=== PATIENT | female | born 1945 | race Caucasian/White ===

== ENCOUNTER → 2016-10-29 | Day surgery (SDC) | payer MEDICARE ==
[~2016-10-29] VITALS: Ht 165.1 cm; Wt 106.1 kg
[~2016-10-29] MED LIST: ACETAMINOPHEN 325 MG TAB PO PRN; ASPI1TAB PO; AcetaZOLAMIDE 500 MG ER CAP PO ONE; BSS with VANC/TOB/EPI for EYE CASES IR ONE; CEFUROXIME 1MG/0.1ML INTRACAMERAL INJ As Ordered ONE; CYCLOPENTOLATE 2% OPHTH SOLN 2ML BTL XX ONE; HEALON DUET (HEALON 10MG/ML 0.55ML & HEALON ENDOCOAT 30MG/ML 0.85ML) As Ordered ONE; KETOROLAC 0.5% OPHTH SOLN OS ONE; LEVO75TA4 PO; LIDOCAINE 1% SDV 5 ML VIAL As Ordered ONE; LIDOCAINE 4% INJ 5 ML AMP OU ONE; LISI20TA3 PO; LR 500 ML IV ONE; METO100T PO; MIDAZOLAM INJ 2 MG/2 ML VIAL (J2250) As Ordered ONE; OFLOXACIN 0.3 % (OCUFLOX) OPTH SOL 5ML XX ONE; PHENYLEPHRINE 2.5% OPHTH SOL 2ML XX ONE; POVIDONE-IODINE 5% OPHTH PREP SOL 30ML As Ordered ONE; PRAV40TA2 PO; PROPARACAINE 0.5% OPHTH SOL 15ML OS PRN; TOBRADEX OPHTH OINT 3.5 GM As Ordered ONE; TRIMETHOBENZAMIDE 300 MG CAP PO PRN; TROPICAMIDE 1% OPHTH SOLN 2ML XX ONE; mitoMYcin (FOR OPHTHALMIC USE) 0.3MG/1ML SYRINGE IN NaCl (J7999) As Ordered ONE
[2016-10-29 13:35] VITALS: BP 146/68
--- NOTE | 2016-11-04 20:20 | RO ---
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 PROCEDURE: Femtosecond laser with phacoemulsification and intraocular lens implantation of PCB00, power 20 diopters. SURGEON: Dr. Joanne Amador CASING MAN: None. ANESTHESIA: COMPLICATIONS: None. DESCRIPTION OF PROCEDURE: The patient was first brought to the laser suite after the eye was prepped and draped. Patient interface was applied and the suction was initiated. After adequate suction, OCT images were taken following which the laser was activated. Capsulorrhexis, lens fragmentation primary, secondary and tertiary corneal incisions were made per plan after which the suction was released and the patient was brought to the operating room. Eye was prepped and draped in a sterile fashion for ophthalmic surgery and a lid speculum was placed. The sideport and the temporal corneal incisions were opened and so were the arcuate incisions per plan. EndoCoat was injected into the anterior chamber. Capsulorrhexis removed, hydrodissection done, phacoemulsification done in a divide and conquer method within the capsular bag followed by aspiration of the cortex. Intraocular lens PCB00, 20 diopter was then placed in the capsular bag. Healon was then placed into the ciliary sulcus to visualize the ciliary processes on the video screen with the help of the EndoProbe and endocyclophotocoagulation was done 280 degrees at 0.25 milliwatts and good results were noted as shrinking of the ciliary processes. Following this, a #10-0 nylon suture was placed after excess viscoelastic was aspirated. Attention was then diverted to placing the Ex-PRESS shunt. A limbal-based conjunctival peritomy was done for 4 o'clock hour superiorly. Subconjunctival dissection was carried out after giving subconjunctival 2% lidocaine with 1:100,000 epinephrine. The dissection was carried out all the way to the blue line. Hemostasis was obtained as necessary. Mitomycin 0.3 mg per mL was then placed in the scleral bed followed by copious irrigation with balanced salt solution. A rectangular limbal-based scleral flap was created, measured 4 mm x 3 mm. The flap was elevated and anterior chamber was entered with a 27-gauge needle, which was subsequently retracted. Through the same tract, Ex-PRESS shunt was placed and draped over by the scleral flap. Conjunctivae was closed using #8-0 Vicryl sutures. At the end of the case, the cefuroxime was given intracamerally, lid speculum was removed, TobraDex ointment applied, eye was patched and the patient returned to the recovery room in stable condition.
== END | disposition home or self-care (01) ==
LOC: M SDC 10:51
PROVIDERS: ATTEND Ophthalmology
DX: H26.9 Unspecified cataract (principal); H40.9 Unspecified glaucoma; F41.9 Anxiety disorder, unspecified; E78.5 Hyperlipidemia, unspecified; E03.9 Hypothyroidism, unspecified; R73.01 Impaired fasting glucose; K05.01 Acute gingivitis, non-plaque induced; I10 Essential (primary) hypertension; R29.898 Other symptoms and signs involving the musculoskeletal system; M12.9 Arthropathy, unspecified; I25.10 Atherosclerotic heart disease of native coronary artery without angina pectoris; E78.00 Pure hypercholesterolemia, unspecified; Z87.891 Personal history of nicotine dependence; Z79.899 Other long term (current) drug therapy; Z79.82 Long term (current) use of aspirin; Z85.41 Personal history of malignant neoplasm of cervix uteri; Z85.3 Personal history of malignant neoplasm of breast; Z90.710 Acquired absence of both cervix and uterus; Z95.5 Presence of coronary angioplasty implant and graft; Z92.21 Personal history of antineoplastic chemotherapy; Z92.3 Personal history of irradiation
CPT/HCPCS: 66711; 66984; C1783; J2250; V2632

== ENCOUNTER → 2017-07-16 | Outpatient (REF) | payer MEDICARE ==
[2017-07-16 13:31] LABS: INR 1.05; PROTHROMBIN TIME 13.8 SECONDS (12.4-14.5)
[2017-07-16 13:32] LABS: PARTIAL THROMBOPLASTIN TIME 28.8 SECONDS (26.8-37.9)
[2017-07-17 14:19] LABS: CA15-3 ANTIGEN 1524.8 U/ML (<32.4)
== END ==
LOC: M LAB REF 12:56
DX: C50.919 Malignant neoplasm of unspecified site of unspecified female breast (principal)
CPT/HCPCS: 86300